=== PATIENT | female | born 1935 | race Two or more races ===

== ENCOUNTER 2024-01-06 11:21 | Inpatient (IN) | payer MEDICAID ==
[~2024-01-06] VITALS: Ht 152.4 cm; Wt 59.0 kg
[~2024-01-06 11:21] MED LIST: CLON0.1T PO; HYDR2.5L4 TOP; LIDO1PAD55 EX; TACR0.1O7 EX; TRAM50TA2 PO
[2024-01-06 12:50] LABS: Basophils # (auto) 0 10 ^3/uL (0-0.2); Basophils % (auto) 0.4 % (0.0-2.0); Eosinophils # (auto) 0.1 10 ^3/uL (0-0.8); Eosinophils % (auto) 1.3 % (0.0-7.0); Hematocrit 39.8 % (36.0-46.0); Hemoglobin 13.5 g/dL (12.2-16.2); Lymphocytes % (auto) 24.3 % (10.0-50.0); Mean Corpuscular Hemoglobin 31.6 pg (28.0-32.0); Mean Corpuscular Hgb Conc. 33.8 g/dL (32.0-36.0); Mean Corpuscular Volume 93.5 fL (80.0-100.0); Monocytes # (auto) 0.4 10 ^3/uL (0-1.3); Monocytes % (auto) 4.7 % (0.0-12.0); Neutrophils # (auto) 5.7 10 ^3/uL (1.6-8.6); Neutrophils % (auto) 69.3 % (37.0-80.0); Nucleated Red Blood Cells % 0.1 %; Platelet Count (auto) 236 10^3/uL (140-450); Red Blood Cells 4.26 10^6/uL (4.0-5.20); Red Cell Distribution Width 14.1 % (11.8-14.3); White Blood Cell 8.3 10^3/uL (4.4-10.8)
[2024-01-06 12:59] LABS: Alanine Aminotransferase 33 U/L (7-40); Albumin 4.5 g/dL (3.2-4.8); Alkaline Phosphatase 126 U/L (46-116); Anion Gap 5 (5-15); Aspartate Aminotransferase 21 U/L (13-40); BUN/Creatinine Ratio 17.5 (10.0-20.0); Bilirubin, Total 0.7 mg/dL (0.2-1.0); Blood Urea Nitrogen 18 mg/dL (9-23); Calcium 10.1 mg/dL (8.7-10.4); Carbon Dioxide 27 mmol/L (20-30); Chloride 109 mmol/L (98-107); Glucose 86 mg/dL (74-106); Potassium 3.8 mmol/L (3.5-5.1); Sodium 141 mmol/L (136-145); Total Protein 7.5 g/dL (5.7-8.2)
[2024-01-06] MEDS ORDERED: HYDROcodone-ACET 5/325MG TAB PO PRN (14:45)
[2024-01-06] MEDS ORDERED: DOCUSATE SOD 100 MG CAP PO PRN (14:45)
[2024-01-06] MEDS ORDERED: ACETAMINOPHEN 325 MG TAB PO PRN (14:45)
[2024-01-06] MEDS ORDERED: NITROGLYCERIN 0.4 MG SL TAB SL PRN (15:30)
[2024-01-06 20:36] LABS: Urine Bacteria None Seen /hpf (None Seen)
[2024-01-06 21:48] LABS: Urine Blood Negative /uL (Negative); Urine Clarity Clear (Clear); Urine Color Light-Yellow (Yellow); Urine Mucus FEW (None Seen); Urine Protein, UAD Negative (Negative); Urine Specific Gravity 1.016 (1.001-1.035); Urine Urobilinogen Normal (Negative); Urine WBC 5 /hpf (0 - 5); Urine pH 5.5 (5.0-9.0)
[2024-01-06 21:57] VITALS: PULSE 84; O2SAT 96
[2024-01-06] MEDS: SODIUM CHLOR 0.9% PF (SALINE LOCK) 10ML VIAL/SYR IV SCH (22:10)
[2024-01-06] MEDS: METOPROLOL TARTRATE 25 MG TAB PO SCH (22:26)
[2024-01-06] MEDS: ASCORBIC ACID 500 MG TAB PO SCH (22:27)
[2024-01-07] MEDS: hydrALAZINE HCL 20 MG/ML VL IV PRN (03:24)
[2024-01-07] MEDS: ONDANSETRON HCL 4 MG/2 ML VIAL IV PRN (04:05)
[2024-01-07] MEDS: MORPHINE SULFATE INJ 2 MG/ml SYRG IV PRN (04:05)
[2024-01-07 05:07] LABS: Basophils # (auto) 0.1 10 ^3/uL (0-0.2); Basophils % (auto) 0.9 % (0.0-2.0); Eosinophils # (auto) 0.2 10 ^3/uL (0-0.8); Eosinophils % (auto) 2.5 % (0.0-7.0); Hematocrit 39.4 % (36.0-46.0); Hemoglobin 13.2 g/dL (12.2-16.2); Lymphocytes # (auto) 2.4 10 ^3/uL (0.4-5.4); Lymphocytes % (auto) 32.4 % (10.0-50.0); Mean Corpuscular Hemoglobin 31.4 pg (28.0-32.0); Mean Corpuscular Hgb Conc. 33.5 g/dL (32.0-36.0); Mean Corpuscular Volume 93.9 fL (80.0-100.0); Monocytes # (auto) 0.3 10 ^3/uL (0-1.3); Monocytes % (auto) 4.4 % (0.0-12.0); Neutrophils # (auto) 4.5 10 ^3/uL (1.6-8.6); Neutrophils % (auto) 59.8 % (37.0-80.0); Nucleated Red Blood Cells % 0.1 %; Platelet Count (auto) 233 10^3/uL (140-450); Red Cell Distribution Width 13.9 % (11.8-14.3); White Blood Cell 7.5 10^3/uL (4.4-10.8)
[2024-01-07 05:23] LABS: Alanine Aminotransferase 29 U/L (7-40); Albumin 4.2 g/dL (3.2-4.8); Alkaline Phosphatase 115 U/L (46-116); Anion Gap 5 (5-15); Aspartate Aminotransferase 15 U/L (13-40); BUN/Creatinine Ratio 23.6 (10.0-20.0); Bilirubin, Total 0.5 mg/dL (0.2-1.0); Blood Urea Nitrogen 25 mg/dL (9-23); Calcium 10.1 mg/dL (8.7-10.4); Carbon Dioxide 27 mmol/L (20-30); Chloride 110 mmol/L (98-107); Glucose 98 mg/dL (74-106); Potassium 4.3 mmol/L (3.5-5.1); Sodium 142 mmol/L (136-145)
[2024-01-07 08:31] VITALS: PULSE 72; RESP 16; O2SAT 99
[2024-01-07] MEDS: ZINC SULFATE 220mg CAP or TAB PO SCH (09:41)
[2024-01-07] MEDS: amLODIPine BESYLATE 5 MG TAB PO SCH (09:41)
[2024-01-07 16:24] VITALS: PULSE 74; RESP 16; O2SAT 96
[2024-01-07] MEDS ORDERED: hydrALAZINE HCL 20 MG/ML VL IV PRN (16:45)
[2024-01-07 17:00] VITALS: BP 145/62; PULSE 74; RESP 16; TEMP 98.2; O2SAT 96
[2024-01-07 18:35] LABS: Erythrocyte Sedimentation Rate 4 mm/hr (0-20)
[2024-01-07 22:00] VITALS: BP 135/66; PULSE 69; RESP 19; TEMP 98.3; O2SAT 94
[2024-01-07 23:16] LABS: COVID19 ANTIGEN SOFIA FIA NEGATIVE (NEGATIVE)
[2024-01-08] VITALS (10 sets, daily range): BP systolic 103–179; BP diastolic 44–70; PULSE 59–86; RESP 16–20; TEMP 98.2–99; O2SAT 93–100
[2024-01-08] MEDS ORDERED: DICL1GEL59 EX (13:09)
[2024-01-08] MEDS ORDERED: CETI10TA2 PO (13:09)
[2024-01-08] MEDS ORDERED: MONT-8 PO (13:09)
[2024-01-08] MEDS ORDERED: IOHEXOL 350 MG/ML 100ML IJ ONE (15:29)
[2024-01-08] MEDS: SODIUM CHLORIDE 0.9% 1,000 ML IV SCH (18:29)
[2024-01-09] VITALS (7 sets, daily range): BP systolic 147–194; BP diastolic 62–77; PULSE 56–66; RESP 16–18; TEMP 97.7–98.8; O2SAT 95–98
[2024-01-09 06:39] LABS: INR 0.99 (0.9-1.15); Partial Thromboplastin Time 26.1 SEC (24.5-34.5); Prothrombin Time 10.5 sec (9.3-11.8)
[2024-01-09] MEDS: hydrALAZINE HCL 20 MG/ML VL IV PRN (13:57)
== END 2024-01-09 14:49 | disposition home or self-care (01) | DRG 199 ==
LOC: ER 11:21 → EDSEX 11:21 → OVERFLOW 15:23 → WEST WING 15:23
PROVIDERS: ADMIT Nurse Practitioner Family; ATTEND Nurse Practitioner Family
DX: I16.9 Hypertensive crisis, unspecified (principal); I13.10 Hypertensive heart and chronic kidney disease without heart failure, with stage 1 through stage 4 chronic kidney disease, or unspecified chronic kidney disease; R11.2 Nausea with vomiting, unspecified; N18.9 Chronic kidney disease, unspecified; T50.995A Adverse effect of other drugs, medicaments and biological substances, initial encounter; Z80.52 Family history of malignant neoplasm of bladder; Z82.49 Family history of ischemic heart disease and other diseases of the circulatory system; Z79.899 Other long term (current) drug therapy; Z88.8 Allergy status to other drugs, medicaments and biological substances; Y92.89 Other specified places as the place of occurrence of the external cause
CPT/HCPCS: 36415; 71045; 80053; 81001; 84484; 85025; 85379; 85610; 85652; 85730; 86141; 87426; 93005; G0378; J2405

== ENCOUNTER → 2024-01-06 | Outpatient (CLI) | payer MEDICAID ==
[~2024-01-06] VITALS: Ht 152.4 cm; Wt 59.0 kg
[2024-01-06] MEDS: REGADENOSON 0.4 MG/5 ML SYRG IV ONE ×2 (09:44)
== END | disposition home or self-care (01) ==
LOC: EDSEX → XYW 07:42
PROVIDERS: ATTEND Internal Medicine
DX: R07.9 Chest pain, unspecified (principal); R06.02 Shortness of breath; I10 Essential (primary) hypertension; K80.20 Calculus of gallbladder without cholecystitis without obstruction; B37.0 Candidal stomatitis
CPT/HCPCS: 78452; A9500; J2785; 93017